=== PATIENT | female | born 1980 | race Caucasian/White ===

== ENCOUNTER → 2021-08-26 | Outpatient (CLI) | payer MEDICAID ==
--- NOTE | 2021-08-26 10:54 | Diagnostic Imaging Report ---
INDICATION: Right knee pain. EXAMINATION: Right knee, 3 views. FINDINGS: The joint space is well-maintained. The articulating surfaces are smooth. The patella shows good alignment. No fractures. IMPRESSION: Normal right knee. Dictated by: Dictated on workstation # [id number]
== END ==
LOC: RAD FS 10:17
PROVIDERS: ATTEND Nurse Practitioner
DX: S80.01XA Contusion of right knee, initial encounter (principal); X58.XXXA Exposure to other specified factors, initial encounter
CPT/HCPCS: 73562